=== PATIENT | female | born 1960 | race Caucasian/White ===

== ENCOUNTER → 2020-06-14 | Outpatient (REF) | payer OTHER | LOC: M SFHCLERA 09:50 | PROVIDERS: ATTEND Nurse Practitioner Family | DX: R30.0 Dysuria (principal) ==

== ENCOUNTER → 2020-06-29 | Outpatient (CLI) | payer BC ==
--- NOTE | 2020-06-29 15:58 | REPMRS ---
Patient History The patient states she has not had a clinical breast exam in over a year. Patient is postmenopausal. No known family history of cancer. Took hormonal contraceptives for 3 years. Digital Woman Screen Mammo: June 29, 2020 - Exam #: [id number] Bilateral CC and MLO view(s) were taken. Technologist: Dorina Barron, Technologist Prior study comparison: October 11, 2015, digital bilateral screening mammo, performed at [facility]. FINDINGS: The breast tissue is almost entirely fat. The Volpara volumetric breast density category is: A. There is a 1.5 cm spiculated nini density in the upper-outer quadrant of the left breast which merits further evaluation. There has been no other change in the appearance of the mammogram from the prior studies. There is no other interval development of dominant mass, architectural distortion, or grouped microcalcification typical of malignancy. 3-D tomosynthesis shows no additional findings. Assessment: BI-RADS/ACR category 0 mammogram, Incomplete: Need additional imaging evaluation and/or prior mammograms for comparison. Recommendation Ultrasound and special view mammogram of the left breast. This patient's Lifetime Breast Cancer RIsk is estimated at %. This mammogram was interpreted with the aid of an FDA-approved computer-aided dectection system. Electronically Signed By: Balta Kohli MD 06/29/20 [id number]
== END ==
LOC: M WHC 06:28
PROVIDERS: ATTEND Nurse Practitioner Family
DX: Z12.31 Encounter for screening mammogram for malignant neoplasm of breast (principal); R92.8 Other abnormal and inconclusive findings on diagnostic imaging of breast

== ENCOUNTER → 2020-07-22 | Outpatient (CLI) | payer BC ==
--- NOTE | 2020-07-22 11:53 | REP ---
INDICATION: ADDL VIEWS/R92.8 LEFT BREAST BEBETO DENSITY; R92.8 ADDL VIEWS/LEFT BREAST BEBETO DENSITY. COMPARISON: Comparison mammography June 29, 2020, October 11, 2015, and March 22, 2010. TECHNIQUE: Magnified focal spot-compression CC, true mL, and mediolateral oblique views of the left breast are obtained in the upper outer quadrant region. FINDINGS: A 1.7 cm spiculated lesion is again noted in the upper outer quadrant of the left breast containing multiple poly more thick microcalcifications. This is suspicious for malignancy. Scattered fibroglandular elements are noted elsewhere in the left breast. No other suspicious mammographic finding. Targeted left breast sonography: Focused left breast sonography demonstrates a 1.0 x 0.7 x 1.2 cm irregular hypoechoic lesion with acoustic shadowing in the 2 o'clock position 7 cm from the nipple. This is felt to correspond with the mammographic opacity. IMPRESSION: BIRADS/ACR category 5 highly suspicious left breast mammogram and sonographic findings. This patient's Tyrer-Cuzick lifetime breast cancer risk assessment score is 5.9%. This mammogram was interpreted with the aid of an FDA-approved computer-aided detection system. RECOMMENDATION: Ultrasound-guided needle biopsy left breast mass with clip placement and post clip placement mammography recommended.. The patient letter being requested is M4. <Electronically signed by Balta Kohli > 07/22/20 [id number]
== END ==
LOC: M WHC 09:19
PROVIDERS: ATTEND Nurse Practitioner Family
DX: R92.0 Mammographic microcalcification found on diagnostic imaging of breast (principal)

== ENCOUNTER → 2020-12-03 | Outpatient (REF) | payer BC, OTHER | LOC: M SFHCLERA 15:36 | PROVIDERS: ATTEND Nurse Practitioner Family | DX: R35.0 Frequency of micturition (principal) ==

== ENCOUNTER → 2021-04-01 | Outpatient (REF) | payer BC, OTHER | LOC: M SFHCLERA 16:06 | PROVIDERS: ATTEND Nurse Practitioner Family | DX: Z12.4 Encounter for screening for malignant neoplasm of cervix (principal) ==

== ENCOUNTER → 2021-05-06 | Outpatient (REF) | payer BC | LOC: M SFHCLERA 16:21 | PROVIDERS: ATTEND Nurse Practitioner Family | DX: R87.615 Unsatisfactory cytologic smear of cervix (principal); N95.2 Postmenopausal atrophic vaginitis ==

== ENCOUNTER → 2022-04-10 | Outpatient (REF) | payer OTHER, BC | LOC: M SFHCLERA 11:20 | PROVIDERS: ATTEND Family Medicine | DX: R30.0 Dysuria (principal) ==

== ENCOUNTER → 2022-04-25 | Outpatient (CLI) | payer BC, OTHER | LOC: M RAD 10:24 | PROVIDERS: ATTEND Family Medicine | DX: N81.4 Uterovaginal prolapse, unspecified (principal) ==

== ENCOUNTER → 2023-04-19 | Outpatient (REF) | payer BC, OTHER | LOC: M LAB REF 16:23 | PROVIDERS: ATTEND Student in an Organized Health Care Education/Training Program | DX: R30.0 Dysuria (principal) ==

== ENCOUNTER → 2024-01-25 | Outpatient (REF) | payer MEDICARE, BC, OTHER | LOC: M LAB REF 18:59 | PROVIDERS: ATTEND Physician Assistant | DX: R30.0 Dysuria (principal) ==

== ENCOUNTER → 2025-02-23 | Outpatient (REF) | payer MEDICARE, BC ==
[2025-02-23 17:44] LABS: BASO # 0.1 10^3/uL (0.0-0.2); BASO % 0.9 % (0.0-1.0); EOS # 0.2 10^3/uL (0.0-0.5); EOS % 3.6 % (0.0-3.0); LYMPH # 2.0 10^3/uL (1.5-5.0); LYMPH % 29.9 % (24.0-44.0); MONO # 0.5 10^3/uL (0.0-0.8); MONO % 7.4 % (2.0-8.0); NEUTROPHILS # 3.9 10^3/uL (1.5-8.5); NEUTROPHILS % 58.1 % (36.0-66.0); PLATELET COUNT, AUTOMATED 278 10^3/uL (150-450)
[2025-02-23 17:51] LABS: ALT/SGPT 14.0 U/L (7.0-40); AST/SGOT 17.0 U/L (<34); CALCIUM LEVEL 8.9 MG/DL (8.3-10.6); CARBON DIOXIDE LEVEL 27.0 MMOL/L (20-31); CHLORIDE LEVEL 107.0 MMOL/L (98-107); CHOLESTEROL LEVEL 217.0 MG/DL (<200); CHOLESTEROL RISK RATIO 4.68 (<5); CREATININE FOR GFR 0.8 MG/DL (0.55-1.30); GLOMERULAR FILTRATION RATE 81.2 (>45); LDL CHOLESTEROL 151.3 MG/DL (<100); NON-HDL-C 170.7 MG/DL; POTASSIUM SERUM 3.9 MMOL/L (3.5-5.1); SODIUM LEVEL 141.0 MMOL/L (136-145); TOTAL 25(OH) VITAMIN D 39.7 NG/ML (20.0-100.0); TRIGLYCERIDES LEVEL 97.0 MG/DL (<150)
[2025-02-23 18:26] LABS: ESTIMATED AVERAGE GLUCOSE 105.0 MG/DL (60-110)
== END ==
LOC: M SFHCLERA 10:37
DX: Z00.00 Encounter for general adult medical examination without abnormal findings (principal); Z79.899 Other long term (current) drug therapy

== ENCOUNTER → 2025-04-27 | Outpatient (REF) | payer MEDICARE, OTHER | LOC: M LAB REF 14:12 | PROVIDERS: ATTEND Student in an Organized Health Care Education/Training Program | DX: R30.0 Dysuria (principal) ==